=== PATIENT | male | born 1960 | race Caucasian/White ===

== ENCOUNTER → 2024-07-11 | Outpatient (CLI) | payer MEDICARE, OTHER | LOC: RAD 08:39 | DX: R90.82 White matter disease, unspecified (principal); I67.82 Cerebral ischemia; I69.359 Hemiplegia and hemiparesis following cerebral infarction affecting unspecified side ==

== ENCOUNTER → 2024-07-15 | Outpatient (CLI) | payer MEDICARE, OTHER | LOC: RAD 06:44 | DX: M47.812 Spondylosis without myelopathy or radiculopathy, cervical region (principal) ==